=== PATIENT | female | born 1990 | race Hispanic/Latino ===

== ENCOUNTER 2025-07-27 05:21 | Emergency (ER) | payer SELFPAY ==
[~2025-07-27] VITALS: Ht 160 cm; Wt 70.3 kg
[2025-07-27 05:36] VITALS: BP 139/92; PULSE 94; RESP 18; TEMP 96.6; O2SAT 100
--- NOTE | 2025-07-27 05:45 | NUR ---
REFER TO [facility] BLOOD SEARCH WARRANT COPY LOCATED IN PAPER MEDICAL CHART.
--- NOTE | 2025-07-27 05:47 | NUR ---
PT REQUEST TO SEE MEDICAL DOCTOR AT THIS TIME. ED MD SUNG MADE AWARE.
--- NOTE | 2025-07-27 06:01 | NUR ---
ED MD ATTEMPT TO ASSESS PT. PT REFUSING TO ANSWER QUESTIONS AT BEDSIDE. PER ED MD THOPU PT CLEARED FOR DISCHARGE.
--- NOTE | 2025-07-27 06:08 | ERN ---
ED Note History of Present Illness Stated Complaint: MANDATORY BLOOD DRAW Chief Complaint: Mandatory Blood Draw Time Seen by MD: 05:30 Dictation: This is a 35-year-old female who was brought by law enforcement for mandatory blood draw. I was asked to see the patient at her request. Officer was at bedside. Asked her the purpose of her visit and if she has any medical concerns she said her blood pressure was high it was 142/89 then she asked me what her MAP was. When I asked her if she was health rn care transition she refused to answer questions she stated that she will not answer any questions without an kitchen chef being present. I explained to her that my role is not as a parole board officer [employer] manager but to address any medical concerns that she has and evaluate her medically. She basically refused to answer any questions. He also refused any further evaluation or medical treatment Temperature 96.6 pulse 81 respirations 20 blood pressure 142/89 with a pulse oximetry of 97% on room air When I asked the chief legal officer if he had any medical concerns whether the patient fell or injured he denied any fall or injury and he stated that there was a call received and in his opinion he was concerned about intoxication no other concerns. Allergies: Coded Allergies: No Known Allergies (Unverified Allergy, Unknown, 07/27/25) Past Medical History Past Medical History: No Pertinent History Surgical History: Unknown Family History: Negative RN Note Reviewed/Agreed w/PFSH: Yes Review of System Dictation Patient refused to answer any questions Initial Vital Sign VS Vital Signs Date Time Temp Pulse Resp B/P (MAP) Pulse Ox O2 Delivery O2 Flow Rate FiO2 07/27/25 05:30 96.6 81 20 142/89 97 Room Air 07/27/25 05:36 0 21 Physical Exam Dictation General: awake, alert, NAD appeared very guarded and refused to answer questions Head/Face: Normocephalic, atraumatic Eyes: PERRL, EOMI, vision at baseline ENT: oral cavity clear, TMs clear, no signs of infection Neck: Trachea midline, supple, no nuchal rigidity Cardiovascular: RRR, normal S1/S2, No MRGs, no JVD Respiratory: CTAB, no respiratory distress, No rales or wheezes Abdomen: Soft, non-tender, non-distended, normal bowel sounds, no guarding or rebound. Skin: Warm, dry, normal turgor, no rash MS/Extremity: Pulses equal, no cyanosis, neurovascular intact, FROM Neuro: COAx4, GCS 15, strength 5/5, CN 2-12 intact, normal cerebellar exam, normal gait, Psych: Normal behavior, mood, and affect normal Extremities-trace edema without any palpable cords, Homans sign is negative ED Course ED Course Vital Signs Date Time Temp Pulse Resp B/P (MAP) Pulse Ox O2 Delivery O2 Flow Rate FiO2 07/27/25 05:36 96.6 94 18 139/92 100 Room Air* 0 21 07/27/25 05:30 96.6 81 20 142/89 97 Room Air Medical Decision Making MDM This is a 35-year-old female who was brought by law enforcement for mandatory blood draw. I was asked to see the patient at her request. Officer was at bedside. Asked her the purpose of her visit and if she has any medical concerns she said her blood pressure was high it was 142/89 then she asked me what her MAP was. When I asked her if she was health rn care transition she refused to answer questions she stated that she will not answer any questions without an kitchen chef being present. I explained to her that my role is not as a parole board officer orange lean manager but to address any medical concerns that she has and evaluate her medically. She basically refused to answer any questions. He also refused any further evaluation or medical treatment Temperature 96.6 pulse 81 respirations 20 blood pressure 142/89 with a pulse oximetry of 97% on room air When I asked the chief legal officer if he had any medical concerns whether the patient fell or injured he denied any fall or injury and he stated that there was a call received and in his opinion he was concerned about intoxication no other concerns. The mandatory blood draw was done by the nursing staff and patient will be discharged to the custody of the law enforcement Problem List Problem List: (1) Encounter for medical clearance for patient hold DX & DISP Disposition: Discharge Departure Impression: Primary Impression: Encounter for medical clearance for patient hold Condition: Stable Additional Instructions: Patient and the caregiver have been informed of all the diagnostic tests and the imaging conducted during the today's visit to the emergency room and has verbalized understanding of the results I have personally reviewed and interpreted all diagnostic exams performed here in the ER today as well as the vital signs documented by the nursing staff. The patient is now being discha rged to law enforcement and should follow up with the primary care physician or the specialist as directed by the ER staff. Referrals: NONE (PCP) CHELSY SUNG MD Jul 27, 2025 06:07
== END 2025-07-27 06:04 ==
LOC: EEVIPCON 05:21 → EDH 05:21
DX: Z02.89 Encounter for other administrative examinations (principal); R03.0 Elevated blood-pressure reading, without diagnosis of hypertension
CPT/HCPCS: 36415; 99283